=== PATIENT | male | born 1985 | race Caucasian/White ===

== ENCOUNTER 2020-06-12 17:10 | Inpatient (IN) | payer OTHER ==
[~2020-06-12] VITALS: Ht 182.9 cm; Wt 75.8 kg
[2020-06-12 18:53] LABS: HEMOGLOBIN 15.1 gm/dl (14.0-17.5); RED BLOOD COUNT 5.13 M/UL (4.20-5.50)
[2020-06-12 19:28] LABS: BUN/CREATININE RATIO 11 (0-10)
[2020-06-14 05:45] LABS: RED BLOOD COUNT 4.36 M/UL (4.20-5.50); WHITE BLOOD COUNT 8.2 K/UL (4.5-11.0)
[2020-06-14 05:46] LABS: HEMOGLOBIN 12.7 gm/dl (14.0-17.5)
[2020-06-14 05:54] LABS: BUN/CREATININE RATIO 13 (0-10)
--- NOTE | 2020-06-14 11:01 | NUR ---
SANCHEZ PAPER SIGNED A EXPLAINED AND PUT INTO FRONT OF PATIENTS CHART
--- NOTE | 2020-06-14 13:41 | NUR ---
PATIENT WAS ASSESSED AND HAS DENTAL CARIES AND A ABSCESS TO HIS LEFT FACE OTHER THAN THIS HE HAS NO PROBLEMS.
[2020-06-15 03:04] LABS: HEMOGLOBIN 13.2 gm/dl (14.0-17.5); RED BLOOD COUNT 4.56 M/UL (4.20-5.50); WHITE BLOOD COUNT 8.4 K/UL (4.5-11.0)
[2020-06-15 03:20] LABS: BUN/CREATININE RATIO 12 (0-10)
--- NOTE | 2020-06-15 03:50 | NUR ---
06/13/20 1843 WARM COMPRESS APPLIED TO LEFT CHEEK ABSCESS PER MD ORDER
--- NOTE | 2020-06-15 03:50 | NUR ---
06/13/202219 SMALL AMOUNT OF CREAMY WHITEIH WITH SLIGHT YELLOW COLOR DRAINING FROM LEFT CHEEK ABSCESS. CULTURE SWAB COLLECTED. WARM COMPRESSED APPLIED.
[2020-06-15] MEDS ORDERED: BACTRIM DS TAB1 EACH PO (13:04)
== END 2020-06-15 14:06 | disposition left against medical advice (07) | DRG 872 ==
LOC: ER1 17:10 → CDU 20:40 → M/S 20:40
PROVIDERS: Internal Medicine; Physician Assistant; ADMIT Internal Medicine
DX: A41.02 Sepsis due to Methicillin resistant Staphylococcus aureus (principal); E44.0 Moderate protein-calorie malnutrition; L03.211 Cellulitis of face; K04.7 Periapical abscess without sinus; J45.909 Unspecified asthma, uncomplicated; Z20.822 Contact with and (suspected) exposure to COVID-19; M27.2 Inflammatory conditions of jaws; Z83.3 Family history of diabetes mellitus; Z68.22 Body mass index [BMI] 22.0-22.9, adult
CPT/HCPCS: 36415; 70487; 80048; 80053; 80202; 83605; 85025; 85027; 85652; 86140; 87040; 87070; 87077; 87186; 87205; 96365; 96366; 96375; 99284; J1650; J1885; J2543; J3370; J7030; J7070; Q9967; U0002